=== PATIENT | female | born 1945 | race Caucasian/White ===

== ENCOUNTER → 2016-09-21 10:28 | Outpatient (CLI) | payer MEDICARE, BC ==
[2016-03-14 06:26] VITALS: BMI 38.7
[~2016-09-21 10:28] MED LIST: ASPIRIN EC81 M1 PO; ATIVAN1 MG PO; BREO ELLIPTA 21 EACH; CELEXA40 MG PO; FLUTICASONE PRO16 GM NASAL; HYDROCODONE-APA1 TAB PO; LOTREL 10/20 CA1 CAP PO; MIRALAX17 GM PO; MULTIPLE VITAMI1 TA1 PO; OXYCODONE HCL5 MG PO; PROAIR HFA8.5 GM INH; PROTONIX40 MG PO; SINGULAIR10 MG PO; STOOL SOFTENER100 M1 PO; ZOCOR20 MG PO; ZOFRAN4 MG PO; [UNRECOGNIZED DRUG - OTHER] INJ
== END | disposition home or self-care (01) ==
LOC: D.MRI 10:28
DX: M51.06 Intervertebral disc disorders with myelopathy, lumbar region (principal); M54.6 Pain in thoracic spine; M54.2 Cervicalgia

== ENCOUNTER → 2016-09-25 10:27 | Outpatient (CLI) | payer MEDICARE, BC ==
[2016-03-14 06:26] VITALS: BMI 38.7
== END | disposition home or self-care (01) ==
LOC: D.MRI 10:27
DX: M51.06 Intervertebral disc disorders with myelopathy, lumbar region (principal); M54.2 Cervicalgia; M54.6 Pain in thoracic spine

== ENCOUNTER → 2017-02-12 08:25 | Outpatient (CLI) | payer MEDICARE, BC ==
[2016-03-14 06:26] VITALS: BMI 38.7
[~2017-02-12 08:25] MED LIST changes: +BREO ELLIPTA 11 EACH INH; +BUTALB-APAP-CA1 EACH PO; +HYSINGLA ER30 MG PO; +PROVENTIL HFA6.7 GM INH
--- NOTE | 2017-02-20 10:07 | EC ---
PATIENT:HERMAN AGUILAR DATE OF SERVICE: 02/12/17 SEX: F MEDICAL RECORD: [id number] DATE OF : 47 LOCATION:D.[facility] AGE OF PATIENT: 71 ADMISSION DATE: 02/12/17 REFERRING PHYSICIAN: INTERPRETING PHYSICIAN: BJORN AWAN MD ECHOCARDIOGRAM REPORT ECHO CHARGES 4 ECHO COMPLETE CLINICAL DIAGNOSIS: SOB,CHEST PAIN, PALPITATIONS ECHOCARDIOGRAPHIC MEASUREMENTS (adult normal given) AC root (d.<3.7cm) 3.7 cm LV Septum d (<1.2 cm> 1.2 cm Valve Excursion 1.8 cm LV Septum (systole) 1.4 cm Left Atria (s.<4.0cm> 44.0 cm LVPW d(<1.2cm) 1.4 cm RV (d.<2.3cm) 3.5 cm LVPW (sytole) 1.6 cm LV diastole(<5.6CM) 4.5 cm MV E-F(>70mm/sec) cm LV systole 3.0 cm LVOT Diameter 2.1 cm MV exc.(>10mm) cm Est.ejection fraction (50-75%) % Pericardial Effusion N DOPPLER: LVIT cm/sec A 115 cm/sec E 82.0 cm/sec LA cm/sec RVSP 20 mmHg LVOT 90 cm/sec AOP1/2T m/s Asc. Ao 142 cm/sec RVOT 81 cm/sec RA cm/sec PA 141 cm/sec AV Gradient Peak 8.09 mmHg AV Mean 4.35 mmHg AV Area 2.1 cm MV Gradient Peak 5.60 mmHg MV Mean 2.13 mmHg MV Area cm COMMENTS: Exam Proctor: Kala CHICAS [employer] Systems Programmer: 4 Dr. Awan TAPE# PACS DATE OF SERVICE: 02/12/2017 PROCEDURE: Transthoracic echocardiogram. FINDINGS: 1. There is mild concentric left ventricular hypertrophy. The inflow characteristics consistent with diastolic dysfunction. The ejection fraction is 65%. 2. The left atrium is mildly dilated. 3. Mitral valve is grossly normal. ECHOCARDIOGRAM REPORT [id number] HERMAN AGUILAR 4. The tricuspid valve has trace tricuspid regurgitation. Normal right ventricular systolic pressures. 5. Aortic valve appears to be grossly normal. 6. Pulmonic valve is normal. 7. The right ventricle is mildly dilated. 8. The right atrium is normal size, normal function. CONCLUSION: There is evidence of mild hypertensive heart disease, otherwise normal echocardiogram. TRANSINT:[id number] Voice Confirmation ID: [id number] DOCUMENT ID: [id number] BJORN AWAN MD at 1007 CC: [id number] DICTATION DATE: 02/15/17 0833 AMBULATORY ANALYST: 02/15/17 0902 DEP CLI 02/12/17 [id number] [place] [address]
== END | disposition home or self-care (01) ==
LOC: D.ECHO 08:25
DX: R06.02 Shortness of breath (principal); R07.9 Chest pain, unspecified; R00.2 Palpitations; I10 Essential (primary) hypertension

== ENCOUNTER 2017-04-16 06:55 | Outpatient (CLI) | payer MEDICARE, BC ==
[~2017-04-16] VITALS: Ht 162.6 cm; Wt 104.5 kg
--- NOTE | ~2017-04-16 | HEMODYNAMI ---
PATIENT:HERMAN AGUILAR MEDICAL RECORD: [id number] : 47 LOCATION:[facility] ADMISSION DATE: 04/16/17 Generatedon:04/16/20179:17 Patient name: HERMAN AGUILAR Patient #: [id number] SSN : : 1945 Date of study: 04/16/2017 Page: Of Hemodynamic Procedure Report Patient Data Patient Demographics Procedure consent was obtained First Name: HERMAN Gender: Female Last Name: LAUREN : 1945 Middle Initial: R Age: 71 year(s) Patient #: [id number] Race: Unknown Additional ID: [id number] Contact details [address]: [address] [place] [address] State: [place] City: [place] Zip code: [address] Admission Admission Data Admission Date: 04/16/2017 Admission Time: 6:55 Procedure Procedure Types Cath Procedure Diagnostic Procedure LHC LHC w/Coronaries Miscellaneous Procedures Moderate Sedation up to 15 minutes Procedure Description Procedure Date Procedure Date: 04/16/2017 Procedure Start Time: 9:02 Procedure End Time: 9:16 Procedure Staff Name Function Moncho Abbasi MD Performing Physician Divya Davila RT Monitor Zoe Celestin RT Scrub Sincere Li RN Nurse Procedure Data Cath Procedure Fluoroscopy Diagnostic fluoroscopy Total fluoroscopy Time: 2 time: 2 min min Diagnostic fluoroscopy Total fluoroscopy dose: 503 dose: 503 mGy mGy Contrast Material Contrast Material Type Amount (ml) Isovue 300 37 Entry Location Entry Primary Successful Side Size Upsize Upsize Entry Closure Corona ccessful Closure Location (Fr) 1 (Fr) 2 (Fr) Remarks Device Remarks Radial Right 6 Fr Mechanical artery Short Compression Estimated blood loss: 10 ml Procedure Complications No complications Procedure Medications Medication Administration Route Dosage Oxygen NC 2 l/min Lidocaine 2% added to field 20 Heparin Flush Bag added to field 2 bags (1000units/500ml NS) 0.9% NaCl I.V. 100 ml/hr Zofran I.V. 4 mg Versed I.V. 2 mg Versed I.V. 1 mg Fentanyl I.V. 50 mcg Radial Cocktail I.A. 1 syringe (Verapomil 2mg/Nitro 400mcg/Heparin 1500units) Hemodynamics Rest Heart Rate: 79 (bpm) Pressure Samples Time Site Value (mmHg) Purpose Heart Use Rate(bpm) 9:10 LV 163/-12,8 EDP 79 9:10 AO 113/56(90) Pullback 91 9:10 LV 123/7,10 Pullback 91 Gradients Valve Time Site 1 Site 2 Mean SEP/DFP Peak To Heart Use (mmHg) (sec/min) Peak Rate (mmHg) (bpm) Aortic 9:10 LV AO 7 19 10 91 123/7,10 113/56(90) Calculations Valve P-P Mean Valve Index Valve Source Name Gradient Area Flow (cm2) Aortic 10 7 10 7 Snapshots Pre Cath Intra NCS Post Cath Vital Signs Time Heart Resp SPO2 NIBP (mmHg) Rhythm Pain Sedation Rate (ipm) (%) Status Level (bpm) 8:51:30 84 25 94 134/90(120) NSR 0 (11) 10(A) , No pain 8:55:46 87 16 98 152/92(134) NSR 0 (11) 10(A) , No pain 9:00:00 81 18 99 139/83(110) NSR 0 (11) 10(A) , No pain 9:04:20 79 15 99 141/79(111) NSR 0 (11) 10(A) , No pain 9:08:44 80 18 98 146/79(108) NSR 0 (11) 10(A) , No pain 9:13:02 84 18 98 131/73(98) NSR 0 (11) 10(A) , No pain Medications Time Medication Route Dose Verified Delivered Reason Notes Effectiveness by by 8:52:32 Oxygen NC 2 l/min Moncho Buffie used for Ayleen fowler MD 8:52:41 Lidocaine 2% added 20ml Moncho Moncho for local to vial Ayleen Abbasi MD anesthetic field FROST 8:52:46 Heparin Flush added 2 bags Moncho Moncho used for Bag to Ayleen Abbasi MD procedure (1000units/500ml field FROST NS) 8:52:55 0.9% NaCl I.V. 100 Moncho Buffie Per ml/hr Ayleen Li RN physician 8:53:06 Zofran I.V. 4 mg Moncho Buffie Per pt state s Ayleen Li RN physician n/v with anesthesia 8:55:32 Versed I.V. 2 mg Moncho Buffie for anxiety Ayleen Li RN, MD 8:58:39 Versed I.V. 1 mg Moncho Buffie for sedation Ayleen Li RN, MD 8:58:44 Fentanyl I.V. 50 mcg Moncho Buffie for sedation Ayleen Li RN, MD 9:09:08 Radial Cocktail I.A. 1 Moncho Moncho for (Verapomil syringe Ayleen Abbasi MD vasodilation 2mg/Nitro MD 400mcg/Heparin 1500units) Procedure Log Time Note 8:36:48 Diagnostic Cath Status : Elective 8:37:19 Divya Davila RT(R) sent for patient. Start room use. 8:37:20 Time tracking: Regular hours 8:37:24 Plan of Care:Hemodynamics will remain stable., Cardiac rhythm will remain stable., Comfort level will be maintained., Respiratory function will remain adequate., Patient/ family verbilizes understanding of procedure., Procedure tolerated without complication., Recovers from procedure without complications.. 8:41:43 Patient received from Pre/Post Procedure Room to CCL 2 Alert and oriented. Tansferred to table in Supine position. 8:41:45 Warm blankets applied, and matt hugger turned on for patient comfort. 8:41:45 Correct patient and procedure confirmed by team. 8:41:47 Signed procedure consent form obtained from patient. 8:41:48 ECG and BP/O2 sat monitors applied to patient. 8:44:42 Full Disclosure recording started 8:44:55 H&P Date Dictated: 04/10/2017 Within 30 days and on chart., H&P Addendum completed by physician on day of procedure. (MUST COMPLETE FOR ALL OUTPATIENTS). 8:45:03 Pre-procedure instructions explained to patient. 8:45:04 Pre-op teaching completed and patient verbalized understanding. 8:45:05 Family in patients room. 8:45:06 Patient NPO since Midnight. 8:45:10 Is the patient allergic to Iodine/contrast media? No. 8:45:58 Is patient on blood thinner?Yes 8:46:14 Patient diabetic? No. 8:46:18 Previous problem with sedation/anesthesia? Yes Nausea 8:46:19 Snore? Yes 8:46:20 Sleep apnea? No 8:46:21 Deviated septum? No 8:46:22 Opens mouth fully? Yes 8:46:23 Sticks out tongue? Yes 8:46:25 Airway obstruction? Yes Asthma/Bronchitis 8:46:29 Dentures? No ? 8:46:32 Pre procedure: right dorsailis pedis pulse 2+ Normal; easily identifiable; not easily obliterated 8:47:09 Modified Wellington's test Ulnar < 7 seconds 8:47:12 Patient pain scale 0/10 ?. 8:47:19 IV patent on arrival in left forearm with 0.9% NaCl at [facility]. 8:47:24 Lab results completed and on chart. 8:47:26 Right Radial & Right Groin area was prepped with chlora-prep and draped in sterile fashion 8:47:27 Alarms reviewed by R. N. 8:47:27 Sharps counted by scrub and verified by R.N. 8:47:52 Use device set Radial Dx 8:47:52 ACIST Syringe (50348) opened to sterile field. 8:47:53 Medline Cath Pack ([id number]) opened to sterile field. 8:47:53 Bag Decanter (2002S) opened to sterile field. 8:47:54 SHEATH 6FR Slender ([id number]) opened to sterile field. 8:47:55 DIAGNOSTIC WIRE .035 260cm J wire (041797) opened to sterile field. 8:47:55 ACIST Hand Control (79057) opened to sterile field. 8:47:56 ACIST Manifold (75836) opened to sterile field. 8:47:57 Tegaderm 4 x 4 (1626W) opened to sterile field. 8:49:01 Rhythm: sinus rhythm 8:50:18 Vital chart was started 8:50:49 ACC The patient was administered the following blood thiners within the last 24 hours: ACCAspirin, ACCPlavix 8:52:32 Oxygen 2 l/min NC was administered by Sincere Li RN; used for procedure; 8:52:41 Lidocaine 2% 20ml vial added to field was administered by Moncho Abbasi MD; for local anesthetic; 8:52:46 Heparin Flush Bag (1000units/500ml NS) 2 bags added to field was administered by Moncho Abbasi MD; used for procedure; 8::55 0.9% NaCl 100 ml/hr I.V. was administered by Sincere Li RN; Per physician; 8:53:06 Zofran 4 mg I.V. was administered by Sincere Li RN; Per physician; pt states n/v with anesthesia 8:55:27 Physician arrived 8::27 --------ALL STOP TIME OUT------ 8:55:28 Final Timeout: patient, procedure, and site verified with staff and physician. All members of the team are in agreement. 8:55:30 Right Radial & Right Groin site verified by team. 8:55:32 Versed 2 mg I.V. was administered by Sincere Li RN; for anxiety; 8:55:37 Physical assessment completed. ASA score P 2 - A patient with mild systemic disease as per Moncho Abbasi MD. 8:55:42 Sedation plan: IV Moderate Sedation Medication:Versed, Fentanyl 8:58:39 Versed 1 mg I.V. was administered by Sincere Li RN; for sedation; 8:58:44 Fentanyl 50 mcg I.V. was administered by Sincere Li RN; for sedation; 9:02:04 Procedure started. 9:02:12 Zero performed for pressure channel P1 9::27 Local anesthetic to right radial artery with Lidocaine 2% by Moncho Abbasi MD.INITIAL ACCESS ONLY 9:03:15 A 6 Fr Short sheath was inserted into the Right Radial artery 9:08:36 GUIDE 6Fr Garrison 4.0 catheter (518416) opened to sterile field. 9:09:08 Radial Cocktail (Verapomil 2mg/Nitro 400mcg/Heparin 1500units) 1 syringe I.A. was administered by Moncho Abbasi MD; for vasodilation; 9:09:18 LV angiography performed. 9:09:41 LV gram done using CRAIG 9:10:55 LCA angiography performed. 9:11:43 RCA angiography performed. 9:12:58 Catheter removed. 9:13:16 TR BAND Standard ([id number]) opened to sterile field. 9:14:36 Sheath removed intact; hemostasis achieved with Mechanical Compression to the Right Radial artery. 9:14:39 Procedure ended.(Physican Out) 9:14:48 Fluoroscopy time 02.00 minutes. 9:14:53 Fluoroscopy dose: 503 mGy 9:14:53 Flurop Dose total: 503 9:14:57 Contrast amount:Isovue 300 37ml. 9:14:59 Sharps counted by scrub and verified by R.N. 9:15:01 TR band inflated with 12cc of air. 9:15:03 Insertion/operative site no bleeding no hematoma. 9:15:05 Post Procedure Pulses reassessed and unchanged 9:15:08 Post-procedure physical assessment completed. ASA score P 2 - A patient with mild systemic disease as per Moncho Abbasi MD. 9:15:15 Post procedure rhythm: unchanged. 9:15:17 Estimated blood loss: 10 ml 9:15:19 Post procedure instruction explained to patient.Patient verbalizes understanding. 9:15:31 Procedure type changed to Cath procedure, Diagnostic procedure, LHC, LHC w/Coronaries, Miscellaneous Procedures, Moderate Sedation up to 15 minutes 9:15:33 Procedure and supply charges have been captured, reviewed, submitted and are correct. 9:16:07 Procedure Complication : No complications 9:16:09 Vital chart was stopped 9:16:10 See physician's report for complete and final results. 9:16:11 Report given to Pre/Post Procedure Room. 9:16:14 Patient transfered to Pre/Post Procedure Room with Stretcher. 9:16:17 Procedure ended. 9:16:17 Full Disclosure recording stopped 9:16:33 End room use (Document Last) Device Usage Item Name Manufacture Quantity Catalog Hospital Part Current Minimal Lot# / Number Charge Number Stock Stock Serial# Code ACIST Acist 1 92412 552471 330658 913816 20 Syringe Sigmatix (35710) Systems Inc Medline Cath Cardinal 1 [id number] 171486 44892 269099 5 Pack Ayalogic ([id number]) Bag Decanter Microtek 1 075985 34796 964847 5 () Medical Inc. SHEATH 6FR Terumo 1 [id number] 978869 981370 920779 40 Slender ([id number]) DIAGNOSTIC St Bear 1 748921 701652 888725 455744 30 WIRE .035 260cm J wire (005320) ACIST Hand Acist 1 23806 144198 049599 179082 5 Control Medical (26132) Systems Inc ACIST Acist 1 70350 430905 653140 267156 5 Manifold Medical (51575) Systems Inc Tegaderm 4 x 3M 1 1626W 322115 372153 889096 5 4 (1626W) GUIDE 6Fr Terumo 1 73-8242 519754 436043 947094 1 Garrison 4.0 catheter (486798) TR BAND Terumo 1 [id number] 067045 277581 353233 40 Standard ([id number]) Signature Audit [place] Stage Time Signature Unsigned Intra-Procedure 04/16/2017 Divya Davila 9:17:16 AM RT(R) Signatures Monitor : Divya Davila Signature : RT Date : Time : [address] [address]
[~2017-04-16 06:55] MED LIST changes: -BREO ELLIPTA 11 EACH INH; -BUTALB-APAP-CA1 EACH PO; -HYSINGLA ER30 MG PO; -PROVENTIL HFA6.7 GM INH
[2017-04-16 07:38] LABS: BASOPHILS 0.3 % (0-2); HEMATOCRIT 40.5 % (36.0-48.0); HEMOGLOBIN 13.7 g/dL (12-16); IMMATURE GRANULOCYTES 0.3 % (0-5); LYMPHOCYTES 28.9 % (15-50); MCH 30.9 pg (26.0-34.0); MCHC 33.8 g/dL (31.0-37.0); MCV 91.2 fL (80.0-100.0); MEAN PLATELET VOLUME 9.1 fL (7.4-10.4); MONOCYTES 10.5 % (2-11); PLATELET COUNT 233 10x3/uL (130-400); RBC 4.44 10x6/uL (4.00-5.40); RDW 13.3 % (11.5-14.5)
[2017-04-16] MEDS ORDERED: HYSINGLA ER30 MG PO (07:42)
[2017-04-16] MEDS ORDERED: BUTALB-APAP-CA1 EACH PO (07:43)
[2017-04-16] MEDS ORDERED: PROVENTIL HFA6.7 GM INH (07:44)
[2017-04-16] MEDS ORDERED: BREO ELLIPTA 11 EACH INH (07:45)
[2017-04-16 07:47] LABS: ANION GAP 12.8 mmol/L (8-16); CALCIUM 9.9 mg/dL (8.5-10.1); CARBON DIOXIDE 27.1 mmol/L (21.0-32.0); POTASSIUM - SERUM 3.9 mmol/L (3.5-5.1)
[2017-04-16 07:50] VITALS: BP 160/85; Ht 162.6 cm; Wt 104.5 kg
--- NOTE | 2017-04-16 09:45 | NUR ---
ALERT AND ORIENTED X4. SITTING UP IN BED. ASSIST ROLLING ON SIDE. TR BAND RT WRIST CLEAN DRY INTACT. FREE FROM BLEEDING. FREE FROM HEMATOMA. PULSES PALPABLE BILATERALLY. WARM BLANKET PER PATIENT REQUEST. O2 95% RA. DENIES SOB OR CHEST PAIN. DISCUSS THE IMPORTANCE OF NOT USING RT HAND FOR 2 HOURS. DENIES ANY NEEDS. BP-94/53, SINUS 74bpm ON TELEMETRY. CONTINUE PLAN OF CARE. BED LOCKED AND LOW. CALL LIGHT IN REACH. TWO SIDERAILS UP.
--- NOTE | 2017-04-16 10:21 | NUR ---
ALERT AND ORIENTED X4. ASSIST AMBULATING TO RESTROOM. RT BAND RT WRIST CLEAN DRY INTACT. FREE FROM BLEEDING. GAIT STEADY. O2 @ 97% RA. ASSIST BACK TO BED. SINUS 74bpm ON TELEMETRY. DENIES SOB. PULSES PALPABLE BILATERALLY. DENIES ANY NEEDS. CONTINUE PLAN OF CARE AND SAFETY PRECAUTIONS.
--- NOTE | 2017-04-16 11:10 | NUR ---
ALERT AND ORIENTED X4. SITTING UP IN BED. ASSIST REPOSITIONING IN BED. DEFLATE BULB ON TR BAND 4mL. RT WRIST BEGAN BLEEDING. INFLATE BULB BACK WITH 2mL BLEEDING STOPPED. EATING SANDWICH. DENIES NAUSEA. PULSES PALPABLE BILATERALLY. SINUS RHYTHM 82bpm ON TELEMETRY. DENIES SOB. CONTINUE PLAN OF CARE AND SAFETY PRECAUTIONS.
--- NOTE | 2017-04-16 11:59 | NUR ---
ASSIST TO RESTROOM. GAIT STEADY. DENIES SOB OR CHEST PAIN. DEFLATE TR BAND 2mL. TOTAL DEFLATION 4mL. CONTINUE TO MONITOR FOR BLEEDING. CONTINUE PLAN OF CARE AND SAFETY PRECAUTIONS. PULSES PALPABLE BILATERALLY.
--- NOTE | 2017-04-16 12:21 | NUR ---
ALERT AND ORIENTED X4. RESTING IN BED WATCHING TV. DEFLATE TR BAND 2 MORE MLS. CONTINUE TO MONITOR FOR BLEEDING. NO MEDICAL CHANGE. CONTINUE PLAN OF CARE AND SAFETY PRECAUTIONS.
--- NOTE | 2017-04-16 12:50 | NUR ---
ALERT AND ORIENTED X4. SITTING UP IN BED. NOTIFY JOLEEN PROBLEM GETTING TR BAND OFF. TR BAND REMOVED. BLEEDING COMING FROM CUT NOT ARTERIAL. BANDAIDE PLACED OVER SITE. TR BAND RETURNED TO RT WRIST WITH 4cc AIR. INSTRUCT PATIENT TO LEAVE ON UNTIL 1600. SAFE TO GO HOME PER JOLEEN. CALL ETHEL (GRANDDAUGHTER) [phone] TO NOTIFY OF DISCHARGE FOR TRANSPORTATION. PULSES PALPABLE BILATERALLY. DENIES SOB. DC LT HAND IV TIP INTACT. CONTINUE PLAN OF CARE AND SAFETY PRECAUTIONS.
== END 2017-04-16 13:14 | disposition home or self-care (01) ==
LOC: D.CATH 06:55
PROVIDERS: Internal Medicine Cardiovascular Disease
DX: I50.30 Unspecified diastolic (congestive) heart failure (principal); R07.2 Precordial pain; R06.02 Shortness of breath; I10 Essential (primary) hypertension; Z01.812 Encounter for preprocedural laboratory examination

== ENCOUNTER → 2018-06-16 10:53 | Outpatient (CLI) | payer MEDICARE, BC ==
[2017-04-16 07:50] VITALS: BMI 39.5
[~2018-06-16 10:53] MED LIST changes: +BREO ELLIPTA 11 EACH INH; +BUTALB-APAP-CA1 EACH PO; +HYSINGLA ER30 MG PO; +PROVENTIL HFA6.7 GM INH
== END | disposition home or self-care (01) ==
LOC: D.CT 10:53
DX: J18.9 Pneumonia, unspecified organism (principal)

== ENCOUNTER 2018-12-02 17:56 | Inpatient (IN) | payer MEDICARE, BC ==
[~2018-12-02] VITALS: Ht 162.6 cm; Wt 116.8 kg
[~2018-12-02 17:56] MED LIST changes: +LOTENSIN20 MG PO; -LOTREL 10/20 CA1 CAP PO
--- NOTE | 2018-12-02 18:44 | NUR ---
FAMILY SETTLED IN ROOM, FAMILY AT BEDSIDE. CORIE PT. PASSED TO CASCADE OPERATOR.
[2018-12-02 18:57] LABS: BASOPHILS 0.3 % (0-2); HEMATOCRIT 37.4 % (36.0-48.0); HEMOGLOBIN 12.9 g/dL (12-16); IMMATURE GRANULOCYTES 1.6 % (0-5); MCH 30.9 pg (26.0-34.0); MCHC 34.5 g/dL (31.0-37.0); MCV 89.5 fL (80.0-100.0); MEAN PLATELET VOLUME 9.2 fL (7.4-10.4); MONOCYTES 11.1 % (2-11); PLATELET COUNT 274 10x3/uL (130-400); RBC 4.18 10x6/uL (4.00-5.40); WBC 12.7 10x3/uL (4.8-10.8)
[2018-12-02 19:14] LABS: ALBUMIN 3.9 g/dL (3.4-5.0); ANION GAP 14.6 mmol/L (8-16); BILIRUBIN - TOTAL 0.33 mg/dL (0.2-1.3); C-REACTIVE PROTEIN 0.6 mg/dL (0.0-0.9); CALCIUM 8.8 mg/dL (8.5-10.1); CARBON DIOXIDE 23.3 mmol/L (21.0-32.0); CREATININE - SERUM 1.1 mg/dL (0.6-1.3); MAGNESIUM - SERUM 2.1 mg/dL (1.8-2.4); PHOSPHOROUS 3.8 mg/dL (2.5-4.9); POTASSIUM - SERUM 3.9 mmol/L (3.5-5.1); PROTEIN - SERUM 7.4 g/dL (6.4-8.2)
--- NOTE | 2018-12-02 19:15 | NUR ---
EMMIE JACINTO IN ROOM SPEAKING WITH PATIENT AND FAMILY. NURSE WROTE NAME AND DATE ON BOARD AND WILL COME BACK TO COMPLETE ADMIT. NO S/S OF DISTRESS. PT UP IN CHAIR. WILL CPOC
[2018-12-02 20:00] VITALS: BP 126/51
[2018-12-02] MEDS ORDERED: SYMBICORT 16010.2 GM INH (20:44)
[2018-12-02] MEDS ORDERED: TRIAMTERENE-HC1 EAC3 PO (20:48)
[2018-12-02] MEDS ORDERED: MIRAPEX0.25 MG PO (21:08)
--- NOTE | 2018-12-02 21:27 | NUR ---
ADMIT COMPLETE. MED REC AND PHARMACY UPDATED. IV PLACED IN LEFT HAND ONE ATTEMPT 20G MEDS GIVEN AND PT VERBALIZED UNDERSTANDING OF ALL MEDICATIONS. PT DENIES ANY NEEDS. NO S/S OF DISTRESS. WILL CPOC
--- NOTE | 2018-12-02 22:07 | NUR ---
PT ASSISTED TO RESTROOM WITH STAND BY ASSIST. GAIT STEADY. PT LEFT HAND IV NOT PATENT. NEW IV PLACED RIGHT WRIST. 20G ONE ATTEMPT AND MEDICATIONS GIVEN. PT DENIES ANY NEEDS. ASKING ABOUT ATIVAN. WILL CHECK ORDERS. NO S/S OF DISTRESS. WILL CPOC
[2018-12-03] VITALS (7 sets, daily range): BP systolic 114–141; BP diastolic 48–77; Ht 162.6 cm; Wt 116.8 kg
[2018-12-03 00:43] LABS: AMORPHOUS SEDIMENT <1+ /lpf (NONE SEEN); APPEARANCE CLEAR (CLEAR); BACTERIA MODERATE /hpf (NONE SEEN); BILIRUBIN NEGATIVE (NEGATIVE); COLOR YELLOW (YELLOW); EPITHELIAL CELLS 0-5 /hpf (0-5); GLUCOSE NEGATIVE (NEGATIVE); GRANULAR CAST NONE SEEN /lpf (NONE SEEN); HYALINE CAST NONE SEEN /lpf (NONE SEEN); KETONE NEGATIVE (NEGATIVE); MUCUS NONE SEEN /lpf (NONE SEEN); NITRITE NEGATIVE (NEGATIVE); PROTEIN 1+ mg/dL (NEGATIVE); RED CELL CAST NONE SEEN /lpf (NONE SEEN); RED CELLS - URINE 0-5 /hpf (0-5); SPERMATOZOA NONE SEEN /hpf (NONE SEEN); UROBILINOGEN NORMAL (NORMAL); WAXY CAST NONE SEEN /lpf (NONE SEEN); WHITE CELLS - URINE 0-5 /hpf (0-5); YEAST NONE SEEN /hpf (NONE SEEN)
--- NOTE | 2018-12-03 01:03 | NUR ---
PT LAYING IN CHAIR WITH EYES CLOSED. PT UNABLE TO STAY IN BED DUE TO DYSPNEA AND BACK PAIN. NO OTHER NEEDS. WILL CPOC
--- NOTE | 2018-12-03 01:06 | NUR ---
PT UP TO RESTROOM. NO DIFFICULTY. GAIT STEADY. PT WILL CALL FOR ASSIST WHEN NEEDED. WILL CPOC
--- NOTE | 2018-12-03 04:18 | NUR ---
PT COMPLAINS OF PAIN. NORCO GIVEN ORDERED. WILL CPOC
[2018-12-03] MEDS ORDERED: IBUPROFEN800 MG PO (04:20)
--- NOTE | 2018-12-03 04:20 | NUR ---
PT SITTING UP IN CHAIR. COUGH NOT PRODUCTIVE AT THIS TIME. AAO. AWARE THAT SPUTUM CULTURE IS NEEDED. WILL CPOC
[2018-12-03 05:53] LABS: ALBUMIN 3.2 g/dL (3.4-5.0); ANION GAP 14.4 mmol/L (8-16); BILIRUBIN - TOTAL 0.35 mg/dL (0.2-1.3); CALCIUM 8.7 mg/dL (8.5-10.1); CARBON DIOXIDE 24.3 mmol/L (21.0-32.0); CREATININE - SERUM 1.2 mg/dL (0.6-1.3); PHOSPHOROUS 3.8 mg/dL (2.5-4.9); PROTEIN - SERUM 6.9 g/dL (6.4-8.2)
[2018-12-03 06:21] LABS: POTASSIUM - SERUM 4.7 mmol/L (3.5-5.1)
--- NOTE | 2018-12-03 07:00 | NUR ---
REPORT RECEIVED. SHE IS UP IN CHAIR IN ROOM. ALERT. RIGHT WRIST IV SITE CLEAR. RESP EVEN WITHOUT LABOR. O2 SAT ON R/A IS 95%, O2 IS OFF AT THIS TIME. SHE IS COUGHING NON-PRODUCTIVE. BED IN LOWEST POSITION AND LOCKED. CAREPLAN REVIEW DONE WITH SAFETY PRECAUTIONS IN PLACE. SHE REFUSES TO WEAR SCD'S BUT IS ON LOVENOX. CL IN REACH
[2018-12-03 07:35] LABS: BASOPHILS 0.2 % (0-2); EOSINOPHILS 0.1 % (0-7); IMMATURE GRANULOCYTES 1.9 % (0-5); LYMPHOCYTES 13.3 % (15-50); MCH 30.4 pg (26.0-34.0); MCHC 34.2 g/dL (31.0-37.0); MCV 88.8 fL (80.0-100.0); MEAN PLATELET VOLUME 9.5 fL (7.4-10.4); MONOCYTES 1.9 % (2-11); NEUTROPHILS 82.6 % (40-80); PLATELET COUNT 290 10x3/uL (130-400); RBC 4.28 10x6/uL (4.00-5.40); RDW 13.9 % (11.5-14.5); WBC 10.8 10x3/uL (4.8-10.8)
--- NOTE | 2018-12-03 10:45 | NUR ---
SHE IS SITTING UP IN CHAIR IN ROOM WITH NO C/O AT THIS TIME. SHE DOES HAVE DRY COUGH BUT ONLY HAD CLEAR SPIT IN SPECIMEN CUP. SHE WAS ASKED TO TRY AGAIN AND NEW CUP WAS PROVIDED
--- NOTE | 2018-12-03 17:30 | NUR ---
NO CHANGE IN CONDITION NOTED CL IN REACH. RESP EVEN WITHOUT LABOR
--- NOTE | 2018-12-03 19:29 | NUR ---
SPUTUM COLLECTED AT THIS TIME AND TAKEN TO LAB
--- NOTE | 2018-12-03 19:36 | NUR ---
PT IN CHAIR AT BEDSIDE. DENIES NEEDS AT THIS TIME.
[2018-12-04] VITALS: BP 121/60
[2018-12-04 04:00] VITALS: BP 114/56
[2018-12-04 06:03] LABS: BASOPHILS 0.1 % (0-2); EOSINOPHILS 0 % (0-7); HEMATOCRIT 35.4 % (36.0-48.0); IMMATURE GRANULOCYTES 1.5 % (0-5); LYMPHOCYTES 9.6 % (15-50); MCH 30.4 pg (26.0-34.0); MCHC 33.9 g/dL (31.0-37.0); MCV 89.6 fL (80.0-100.0); MEAN PLATELET VOLUME 9.2 fL (7.4-10.4); MONOCYTES 4.6 % (2-11); NEUTROPHILS 84.2 % (40-80); PLATELET COUNT 268 10x3/uL (130-400); RBC 3.95 10x6/uL (4.00-5.40); RDW 13.9 % (11.5-14.5)
[2018-12-04 06:06] LABS: WBC 15.5 10x3/uL (4.8-10.8)
[2018-12-04 06:13] LABS: ANION GAP 11.4 mmol/L (8-16); CALCIUM 8.8 mg/dL (8.5-10.1); CARBON DIOXIDE 26.8 mmol/L (21.0-32.0); CREATININE - SERUM 1.1 mg/dL (0.6-1.3); MAGNESIUM - SERUM 2.1 mg/dL (1.8-2.4); PHOSPHOROUS 3.9 mg/dL (2.5-4.9); POTASSIUM - SERUM 4.2 mmol/L (3.5-5.1)
--- NOTE | 2018-12-04 06:55 | NUR ---
REPORT RECEIVED. ALERT ABLE TO VOICE NEEDS. SHE IS SITTING UP IN HER CHAIR IN ROOM. CL IN REACH. BED IN LOWEST POSITION AND LOCKED. CAREPLAN REVIEW DONE WITH SAFETY PRECAUTIONS IN PLACE. SALINE LOCK INTACT.
[2018-12-04 09:17] VITALS: BP 147/60
--- NOTE | 2018-12-04 10:28 | NUR ---
RETURN AT THIS TIME FROM HAVING [facility] SWALLOW STUDY. SHE IS AWARE TO INCREASE HER FLUID INTAKE. SHE OFFERS NO C/O.
[2018-12-04 12:22] VITALS: BP 117/55
--- NOTE | 2018-12-04 13:11 | EC ---
PATIENT:HERMAN AGUILAR DATE OF SERVICE: 12/02/18 SEX: F MEDICAL RECORD: [id number] DATE OF : 47 LOCATION:D.M2 D.210 AGE OF PATIENT: 73 ADMISSION DATE: 12/03/18 REFERRING PHYSICIAN: INTERPRETING PHYSICIAN: BARTOLO SKINNER MD ECHOCARDIOGRAM REPORT ECHO CHARGES 4 ECHO COMPLETE Date: 12/03/18 CLINICAL DIAGNOSIS: HX: CAD, HTN, SOB ECHOCARDIOGRAPHIC MEASUREMENTS (adult normal given) AC root (d.<3.7cm) 3.3 cm LV Septum d (<1.2 cm> 1.6 cm Valve Excursion 1.3 cm LV Septum (systole) 1.7 cm Left Atria (s.<4.0cm> 3.5 cm LVPW d(<1.2cm) 1.0 cm RV (d.<2.3cm) 3.3 cm LVPW (sytole) 1.4 cm LV diastole(<5.6CM) 4.4 cm MV E-F(>70mm/sec) cm LV systole 3.5 cm LVOT Diameter 2.2 cm MV exc.(>10mm) cm Est.ejection fraction (50-75%) % DOPPLER: LVIT cm/sec A 54 cm/sec E 51 cm/sec LA cm/sec RVSP 32.8 mmHg LVOT 81 cm/sec AOP1/2T m/s Asc. Ao 156 cm/sec RVOT 106 cm/sec RA cm/sec PA 76 cm/sec AV Gradient Peak 9.7 mmHg AV Mean 6.0 mmHg AV Area 2.2 cm MV Gradient Peak 2.5 mmHg MV Mean 1.3 mmHg MV Area cm COMMENTS: Manager Underwriting: Jude RAE Glue Line Operator: 3 Dr. Soto TAPE# PACS Pericardial Effusion N DATE OF SERVICE: 12/03/2018 Adequate 2D, color flow imaging, spectral Doppler, and M-mode. LVH is present. LV internal dimension is normal. Wall motion is normal. EF is greater than or equal to 55%. Aortic valve is tricuspid. No evidence of stenosis by Doppler interrogation. The left atrium is normal at 3.5 cm. Mitral valve shows no prolapse. Trace MR. Right-sided chambers are grossly normal. Trace TR. ECHOCARDIOGRAM REPORT [id number] HERMAN AGUILAR TRANSINT:[id number] Voice Confirmation ID: [id number] DOCUMENT ID: [id number] BARTOLO SKINNER MD at 1311 CC: [id number] DICTATION DATE: 12/03/18 143 LOCOMOTIVE FIRER: 12/03/18 1510 ADM IN [place] [address] [place] [address]
--- NOTE | 2018-12-04 17:30 | NUR ---
NO C/O VOICED AT THIS TIME. LESS COUGHING TODAY. ALERT ABLE TO VOICE NEEDS. DENIES ANY
--- NOTE | 2018-12-04 19:50 | NUR ---
REPORT RECIEVED AND ROUNDING COMPLETE. PATIENT SITTING UP IN BEDSIDE CHAIR. PATIENT STATES SHE IS IN PAIN AND WOULD LIKE SOME PAIN MEDICATIONS. DAUGHTER AT BEDSIDE. PATIENT HAS A RIGHT WRIST WITH ABX RUNNING AT THIS TIME. PATIENT STATES NO OTHER NEEDS AT THIS TIME CALL LIGHT WITHIN REACH AND BED IN LOWEST POSITION. PATIENT IS SHOWING NO S/SX OF DISTRESS AT THIS TIME.
[2018-12-04 20:00] VITALS: BP 134/62
--- NOTE | 2018-12-04 23:24 | NUR ---
PATIENT CALLED ME INTO ROOM AND STATED IV WAS BURNING. IV SITE RIGHT WRIST WAS RED AND WARM. REMOVED PIV, CATH INTACT NO BLEEDING NOTED. PLACED A 20 GAUGE IN RIGHT FOREARM, 1 STICK PATIENT TOLERATED WELL. NO OTHER NEEDS AT THIS TIME.
[2018-12-05] VITALS: BP 119/67
[2018-12-05 04:00] VITALS: BP 142/53
[2018-12-05 05:10] LABS: BASOPHILS 0 % (0-2); EOSINOPHILS 0 % (0-7); HEMATOCRIT 33.8 % (36.0-48.0); HEMOGLOBIN 11.6 g/dL (12-16); IMMATURE GRANULOCYTES 2.4 % (0-5); LYMPHOCYTES 9.1 % (15-50); MCH 30.6 pg (26.0-34.0); MCHC 34.3 g/dL (31.0-37.0); MCV 89.2 fL (80.0-100.0); MEAN PLATELET VOLUME 9.1 fL (7.4-10.4); MONOCYTES 6.3 % (2-11); NEUTROPHILS 82.2 % (40-80); PLATELET COUNT 264 10x3/uL (130-400); RBC 3.79 10x6/uL (4.00-5.40); RDW 14.3 % (11.5-14.5); WBC 13.8 10x3/uL (4.8-10.8)
[2018-12-05 05:14] LABS: % SATURATION 16 % (15-55); IRON 50 ug/dl (35-150); TOTAL IRON BIND CAPACITY 297 ug/dl (260-445); UNSAT IRON BIND CAPACITY 247 ug/dl (150-375)
[2018-12-05 06:06] LABS: ANION GAP 16.6 mmol/L (8-16); CALCIUM 8.6 mg/dL (8.5-10.1); CARBON DIOXIDE 24.6 mmol/L (21.0-32.0); CREATININE - SERUM 1.1 mg/dL (0.6-1.3); MAGNESIUM - SERUM 2.1 mg/dL (1.8-2.4); PHOSPHOROUS 3.7 mg/dL (2.5-4.9); POTASSIUM - SERUM 4.2 mmol/L (3.5-5.1)
--- NOTE | 2018-12-05 06:50 | NUR ---
REPORT RECEIVED. SHE IS SITTING UP IN CHAIR IN ROOM. ALERT ABLE TO VOICE NEEDS. RESP EVEN WITHOUT LABOR. NO COUGH NOTED AT THIS TIME. SALINE LOCK INTACT IN RIGHT FOREARM. CL IN REACH. CHAIR IS LOCKED. CAREPLAN REVIEW DONE AND SAFETY PRECAUTIONS IN PLACE
[2018-12-05 08:11] LABS: IMMUNOGLOBULIN A 159 mg/dL (64-422); IMMUNOGLOBULIN G 855 mg/dL (700-1600)
[2018-12-05 09:27] VITALS: BP 139/68
--- NOTE | 2018-12-05 11:25 | NUR ---
C/O BACK PAIN. HYDROCODONE GIVEN PER ORDERS. DENIES ANY OTHER NEEDS.
[2018-12-05 13:45] VITALS: BP 145/61
--- NOTE | 2018-12-05 14:43 | MORECARE ---
CASE MANAGEMENT DISCHARGE SUMMARY PATIENT: HERMAN AGUILAR UNIT: [id number] ADM DATE: 12/03/18 AGE: 73 : 47 SEX: F ROOM/BED: D.8209 AUTHOR: MANAN CRABTREE PHYSICIAN: REFERRING PHYSICIAN: MARKO DA SILVA MD DATE OF SERVICE: 12/05/18 Discharge Plan Patient Name: HERMAN AGUILAR Facility: [facility]:[place] : 1945 Planned Disposition: Home Anticipated Discharge Date: 12/05/18 Discharge Date: Expected LOS: 2 Initial Reviewer: [email or web address] Initial Review Date: 12/02/2018 Generated: 12/05/18 3:43 pm Comments DCP- Discharge Planning Updated by [id number]: Verónica Hilton on 12/05/18 1:[address] Patient Name: HERMAN AGUILAR Admission Status: Elective Accout number: [id number] Admission Date: 12-03-2018 : 1945 Admission Diagnosis:SHORTNESS OF BREATH Attending: AVINASH, Current LOS: 2 Anticipated DC Date: 12-05-2018 Planned Disposition: Home Primary Insurance: MEDICARE A & B Discharge Planning Comments: DC PLAN: Return home next to daughter. DC NEEDS: Denied dc needs. CM met with patient to complete initial dc planning assessment. CM educated patient on the CM role and verbal consent given by patient to complete assessment. CM verified patient's address, phone number, and emergency contact phone numbers. Patient lives at home alone and reports she is independent with her ADL's. She lives next to her daughter who assists as needed. At discharge patient plans to return home alone and feels this is a safe discharge. CM discussed availability of home health, rehab services, and medical equipment. Patient denied known discharge needs at this time. Patient reports her daughter will transport him/her home at time of discharge. CM will continue to follow and will assist as needed with dc plans/needs. Supervisor Spring Up: Verónica Hilton RN, [facility] DCPIA - Discharge Planning Initial Assessment Updated by [id number]: Verónica Hilton on 12/05/18 2:38 pm * Is the patient Alert and Oriented? Yes * How many steps to enter\exit or inside your home? NONE * PCP Dr. Da Silva * Pharmacy [facility] on [address] * Preadmission Environment Home Alone * ADLs Independent * Equipment Nebulizer Walker * List name and contact numbers for known caregivers / representatives who currently or will assist patient after discharge: Mayra Garcia - [facility] - [phone] Latisha Benito - [facility] - [phone] * Verbal permission to speak to the caregivers and representatives has been obtained from the patient. Yes * Community resources currently utilized None * Additional services required to return to the preadmission environment? No * Can the patient safely return to the preadmission environment? Yes * Has this patient been hospitalized within the prior 30 days at any hospital? No Coverage Notice Reviewer: [email or web address] Eliecer Hilton Notice Issued Date-Time: 12/05/2018 13:16 Notice Type: IM Discharge Notice Notice Delivered To: Patient Relationship to Patient: Mechanical Integrity Specialist Name: Delivery Method: HAND - Hand Delivered Ellie Days: Prior Verbal Notification: Recipient Understood Notice: Recipient Signature: Med Rec Note Co-signed by Attending: Coverage Notice Comment: Patient Name: HERMAN AGUILAR Page [id number] at 1443 All edits/amendments must be made on the electronic document DICTATION DATE: 12/05/181442 CLINICAL PROJECT LEADER: ASHLEY 12/05/181442 RPT#: [id number] DC DATE: STATUS: ADM IN [facility] [address] [place] [address] END OF REPORT
[2018-12-05] MEDS ORDERED: LEVAQUIN750 MG PO (15:46)
[2018-12-05] MEDS ORDERED: MUCINEX DM ER1 EAC1 PO (16:48)
[2018-12-05] MEDS ORDERED: TESSALON PERLE100 MG PO (16:48)
[2018-12-05] MEDS ORDERED: PREDNISONE20 MG PO ×2 (16:49→16:50)
[2018-12-05] MEDS ORDERED: PREDNISONE10 MG PO (16:51)
--- NOTE | 2018-12-05 16:51 | MORECARE ---
CASE MANAGEMENT DISCHARGE SUMMARY PATIENT: HERMAN AGUILAR UNIT: [id number] ADM DATE: 12/03/18 AGE: 73 : 46 SEX: F ROOM/BED: D.8661 AUTHOR: MANAN CRABTREE PHYSICIAN: REFERRING PHYSICIAN: MARKO DA SILVA MD DATE OF SERVICE: 12/05/18 Discharge Plan Patient Name: HERMAN AGUILAR Facility: [facility]:[place] : 1945 Planned Disposition: Home Anticipated Discharge Date: 12/05/18 Discharge Date: Expected LOS: 2 Initial Reviewer: [email or web address] Initial Review Date: 12/02/2018 Generated: 12/05/18 5:50 pm Comments DCP- Discharge Planning Updated by [email or web address]: Verónica Hilton on 12/05/18 1:[address] Patient Name: HERMAN AGUILAR Admission Status: Elective Accout number: [id number] Admission Date: 12-03-2018 : 1945 Admission Diagnosis:SHORTNESS OF BREATH Attending: AVINASH, Current LOS: 2 Anticipated DC Date: 12-05-2018 Planned Disposition: Home Primary Insurance: MEDICARE A & B Discharge Planning Comments: DC PLAN: Return home next to daughter. DC NEEDS: Denied dc needs. CM met with patient to complete initial dc planning assessment. CM educated patient on the CM role and verbal consent given by patient to complete assessment. CM verified patient's address, phone number, and emergency contact phone numbers. Patient lives at home alone and reports she is independent with her ADL's. She lives next to her daughter who assists as needed. At discharge patient plans to return home alone and feels this is a safe discharge. CM discussed availability of home health, rehab services, and medical equipment. Patient denied known discharge needs at this time. Patient reports her daughter will transport him/her home at time of discharge. CM will continue to follow and will assist as needed with dc plans/needs. Elastic Attacher Chainstitch: Verónica Hilton RN, [facility] DCPIA - Discharge Planning Initial Assessment Updated by [email or web address]: Verónica Hilton on 12/05/18 2:38 pm * Is the patient Alert and Oriented? Yes * How many steps to enter\exit or inside your home? NONE * PCP Dr. Da Silva * Pharmacy [facility] [address] * Preadmission Environment Home Alone * ADLs Independent * Equipment Nebulizer Walker * List name and contact numbers for known caregivers / representatives who currently or will assist patient after discharge: Mayra Garcia - [facility] - [phone] Latisha Benito - [facility] - [phone] * Verbal permission to speak to the caregivers and representatives has been obtained from the patient. Yes * Community resources currently utilized None * Additional services required to return to the preadmission environment? No * Can the patient safely return to the preadmission environment? Yes * Has this patient been hospitalized within the prior 30 days at any hospital? No External Providers External Provider: [facility] Patient[facility] Next Contact Date: 12/05/2018 Service Request Date: Service Type: Resolution: Reviewer: Comments: Coverage Notice Reviewer: [id number] - Verónica Hilton Notice Issued Date-Time: 12/05/2018 13:16 Notice Type: IM Discharge Notice Notice Delivered To: Patient Relationship to Patient: Weathercaster Name: Delivery Method: HAND - Hand Delivered Ellie Days: Prior Verbal Notification: Recipient Understood Notice: Recipient Signature: Med Rec Note Co-signed by Attending: Coverage Notice Comment: Last DP export: 12/05/18 1:43 pm Patient Name: HERMAN AGUILAR Page [phone] at 1651 All edits/amendments must be made on the electronic document DICTATION DATE: 12/05/181649 COUNTERINTELLIGENCE SPECIALIST: ASHLEY 12/05/181649 RPT#: [id number] DC DATE: STATUS: ADM IN [facility] [address] [place] [address] END OF REPORT
--- NOTE | 2018-12-05 16:58 | MORECARE ---
CASE MANAGEMENT DISCHARGE SUMMARY PATIENT: HERMAN AGUILAR UNIT: [id number] ADM DATE: 12/03/18 AGE: 73 : 47 SEX: F ROOM/BED: D.2102 AUTHOR: MANAN CRABTREE PHYSICIAN: REFERRING PHYSICIAN: MARKO DA SILVA MD DATE OF SERVICE: 12/05/18 Discharge Plan Patient Name: HERMAN AGUILAR Facility: [facility]:[place] : 1945 Planned Disposition: Home Anticipated Discharge Date: 12/05/18 Discharge Date: Expected LOS: 2 Initial Reviewer: [email or web address] Initial Review Date: 12/02/2018 Generated: 12/05/18 5:58 pm Comments DCP- Discharge Planning Updated by [email or web address]: Pacheco Dominguez on 12/05/18 3:[address] Patient Name: HERMAN AGUILAR Encounter No: [id number] : 1945 Primary Insurance: MEDICARE A & B Anticipated DC Date: 12-05-2018 Planned Disposition: Home DCP follow-up note: CM RECEIVED ORDER FOR OVERNIGHT PULSE OXIMETRY TESTING. CM MET WITH PT IN DISCUSSED ORDER AND PROVIDED LISTING OF HOME HEALTH COMPANIES. PT WANTS TO USE [facility] THEY USED THEM FOR HER LATE . CHOICE SIGNED FOR [facility]. CM CALLED [facility], , SPOKE TO BOB WHO WILL ARRANGE DELIVERY OF EQUIPMENT AND INSTRUCTION ON USE TODAY. CM FAXED REFERRAL TO [facility], . Pacheco Dominguez, [address] DCP- Discharge Planning Updated by [email or web address]: Verónica Hilton on 12/05/18 1:[address] Patient Name: HERMAN AGUILAR Admission Status: Elective Accout number: [id number] Admission Date: 12-03-2018 : 1945 Admission Diagnosis:SHORTNESS OF BREATH Attending: AVINASH, Current LOS: 2 Anticipated DC Date: 12-05-2018 Planned Disposition: Home Primary Insurance: MEDICARE A & B Discharge Planning Comments: DC PLAN: Return home next to daughter. DC NEEDS: Denied dc needs. CM met with patient to complete initial dc planning assessment. CM educated patient on the CM role and verbal consent given by patient to complete assessment. CM verified patient's address, phone number, and emergency contact phone numbers. Patient lives at home alone and reports she is independent with her ADL's. She lives next to her daughter who assists as needed. At discharge patient plans to return home alone and feels this is a safe discharge. CM discussed availability of home health, rehab services, and medical equipment. Patient denied known discharge needs at this time. Patient reports her daughter will transport him/her home at time of discharge. CM will continue to follow and will assist as needed with dc plans/needs. Document Restorer: Verónica Hilton RN, [facility] DCPIA - Discharge Planning Initial Assessment Updated by [id number]: Verónica Hilton on 12/05/18 2:38 pm * Is the patient Alert and Oriented? Yes * How many steps to enter\exit or inside your home? NONE * PCP Dr. Da Silva * Pharmacy [facility] on [address] * Preadmission Environment Home Alone * ADLs Independent * Equipment Nebulizer Walker * List name and contact numbers for known caregivers / representatives who currently or will assist patient after discharge: Mayra Garcia - [facility] - [phone] Latisha Benito - [facility] - [phone] * Verbal permission to speak to the caregivers and representatives has been obtained from the patient. Yes * Community resources currently utilized None * Additional services required to return to the preadmission environment? No * Can the patient safely return to the preadmission environment? Yes * Has this patient been hospitalized within the prior 30 days at any hospital? No Coverage Notice Reviewer: [id number] - Verónica Hilton Notice Issued Date-Time: 12/05/2018 13:16 Notice Type: IM Discharge Notice Notice Delivered To: Patient Relationship to Patient: Cyber Defense Incident Responder Name: Delivery Method: HAND - Hand Delivered Ellie Days: Prior Verbal Notification: Recipient Understood Notice: Recipient Signature: Med Rec Note Co-signed by Attending: Coverage Notice Comment: Reviewer: [id number] - Pacheco Dominguez Notice Issued Date-Time: 12/05/2018 16:40 Notice Type: Patient Choice Letter Notice Delivered To: Patient Relationship to Patient: Cyber Defense Incident Responder Name: Delivery Method: HAND - Hand Delivered Ellie Days: Prior Verbal Notification: Recipient Understood Notice: Yes Recipient Signature: Yes Med Rec Note Co-signed by Attending: Coverage Notice Comment: [facility] Last DP export: 12/05/18 3:51 pm Patient Name: HERMAN AGUILAR Page [phone] at 1658 All edits/amendments must be made on the electronic document DICTATION DATE: 12/05/181657 DIRECTOR OF FOOD AND BEVERAGE SERVICES: ASHLEY 12/05/181657 RPT#: [id number] DC DATE: STATUS: ADM IN [facility] [address] [place] [address] END OF REPORT
--- NOTE | 2018-12-05 17:45 | NUR ---
DISCHARGE INSTRUCTIONS EXPLAINED IN DETAIL AND AWARE OF NEW MED AND APPOINTMENTS. SHE DID GET HER PULSE OX MACHINE DELIVERED AND HE EXPLAINED TO HER WHEN/HOW TO DO IT FOR HER TEST AT HOME. SALINE LOCK D/C WITH CATH INTACT NO BLEEDING FROM SITE. TRANSPORTED PER W/C TO PRIVATE AUTO WITH HER DAUGHTER
[2018-12-06 06:09] LABS: IGG SUBCLASS 1 479 mg/dL (248-810); IGG SUBCLASS 2 259 mg/dL (130-555); IGG SUBCLASS 3 28 mg/dL (15-102); IGG SUBCLASS 4 40 mg/dL (2-96); IGGS - IGG SERUM 879 mg/dL (700-1600)
[2018-12-08 15:09] LABS: IMMUNOGLOBULIN E 35 IU/mL (6-495)
== END 2018-12-05 17:45 | disposition home or self-care (01) | DRG 178 ==
LOC: D.M2 17:56 → OBSVTIME 12-03 00:08 → D.M2 12-03 15:33
PROVIDERS: Emergency Medicine; Internal Medicine Pulmonary Disease; ADMIT Family Medicine; ATTEND Family Medicine
DX: J69.0 Pneumonitis due to inhalation of food and vomit (principal); J45.901 Unspecified asthma with (acute) exacerbation; J44.1 Chronic obstructive pulmonary disease with (acute) exacerbation; Z68.41 Body mass index [BMI] 40.0-44.9, adult; D80.3 Selective deficiency of immunoglobulin G [IgG] subclasses; I10 Essential (primary) hypertension; I48.91 Unspecified atrial fibrillation; I25.10 Atherosclerotic heart disease of native coronary artery without angina pectoris; F41.8 Other specified anxiety disorders; M19.90 Unspecified osteoarthritis, unspecified site; K21.9 Gastro-esophageal reflux disease without esophagitis; E66.9 Obesity, unspecified; D64.9 Anemia, unspecified; T17.990A Other foreign object in respiratory tract, part unspecified in causing asphyxiation, initial encounter; K22.4 Dyskinesia of esophagus

== ENCOUNTER → 2019-01-23 09:37 | Outpatient (CLI) | payer MEDICARE, BC ==
[2018-12-03 01:18] VITALS: BMI 43.2
[~2019-01-23 09:37] MED LIST changes: +IBUPROFEN800 MG PO; +LEVAQUIN750 MG PO; +MIRAPEX0.25 MG PO; +MUCINEX DM ER1 EAC1 PO; +PREDNISONE10 MG PO; +PREDNISONE20 MG PO; +SYMBICORT 16010.2 GM INH; +TESSALON PERLE100 MG PO; +TRIAMTERENE-HC1 EAC3 PO
== END | disposition home or self-care (01) ==
LOC: D.RT 01-16 15:00
PROVIDERS: ATTEND Internal Medicine Pulmonary Disease
DX: J45.909 Unspecified asthma, uncomplicated (principal)

== ENCOUNTER 2019-03-03 07:26 | Outpatient (CLI) | payer MEDICARE, BC ==
[2018-12-03 01:18] VITALS: BMI 43.2
--- NOTE | 2019-03-03 09:16 | NUR ---
0854 MONOMETRY COMPLETED. MINIMAL NOSE BLEED. DC ISTRUCTIONS GIVEN. AMBULATED OUT TO MEET DAUGHTER IN WAITING ROOM.
== END 2019-03-03 08:54 | disposition home or self-care (01) ==
LOC: D.OPS 07:26
PROVIDERS: ATTEND Internal Medicine Gastroenterology
DX: R13.10 Dysphagia, unspecified (principal); K22.4 Dyskinesia of esophagus; K21.9 Gastro-esophageal reflux disease without esophagitis

== ENCOUNTER 2019-06-22 10:50 | Day surgery (SDC) | payer MEDICARE, BC ==
[~2019-06-22] VITALS: Ht 162.6 cm; Wt 113.6 kg
[2019-06-22 11:23] LABS: HEMATOCRIT 36.6 % (36.0-48.0); HEMOGLOBIN 12.5 g/dL (12-16); MCH 30.5 pg (26.0-34.0); MCHC 34.2 g/dL (31.0-37.0); MCV 89.3 fL (80.0-100.0); MEAN PLATELET VOLUME 8.5 fL (7.4-10.4); RBC 4.1 10x6/uL (4.00-5.40); RDW 13.3 % (11.5-14.5); WBC 8.8 10x3/uL (4.8-10.8)
[2019-06-22] MEDS ORDERED: FISH OIL 1,0001 CA1 PO (11:54)
[2019-06-22 11:55] VITALS: BP 148/61; Ht 162.6 cm; Wt 113.6 kg
--- NOTE | 2019-06-22 13:25 | NUR ---
PT DC INSTRUCTIONS REVIEWED AT THIS TIME, PT AND FAMILY VERBALIZED UNDERSTANDING. PT IV REMOVED AT THIS TIME, INTACT, NO REDNESS OR SWELLING NOTED AT SITE. PT IV DRESSED WITH GAUZE AND COBAND, NO BLEEDING NOTED AT SITE.
--- NOTE | 2019-06-22 13:45 | NUR ---
PT LEAVING OPS AT THIS TIME VIA WC, NAD NOTED.
--- NOTE | 2019-06-23 15:20 | OP ---
PATIENT NAME: HERMAN AGUILAR MEDICAL RECORD: [id number] :[birth year] LOCATION:[facility] ADMISSION DATE: SURGEON: CHAZ CHIU DO DATE OF OPERATION: 06/22/2019 PROCEDURE: EGD with biopsies. INDICATION FOR PROCEDURE: Dysphagia, GERD, esophageal dysmotility. SCOPE: Olympus video gastroscope. MEDICATIONS: Propofol 200 mg IV per anesthesia. ESTIMATED BLOOD LOSS: Minimal. COMPLICATIONS: None. FINDINGS: Informed consent was given. The patient was made comfortable with the above medication. After reaching an adequate level of sedation by slow IV push, the patient was placed on her left side. The endoscope was advanced under direct visualization through the mouth to the second portion of the duodenum. The upper, middle, and lower thirds of the esophagus appeared normal. Random cold forceps biopsies were taken from the mid esophagus. At the GE junction, there were minor changes consistent with LA class C, reflux-induced esophagitis. There were no strictures or rings within the esophagus itself. The endoscope was advanced beyond the GE junction into the stomach and retroflexed to view the cardia where a small sliding hiatal hernia was present. The mucosa of the entire stomach appeared normal. Random cold forceps biopsies were taken from the antrum to submit for histopathology and to rule out the presence of H. pylori. The endoscope was advanced beyond the pylorus into the duodenum, which appeared normal to the second portion. The endoscope was then withdrawn from the patient. The patient tolerated the procedure well and there were no complications. IMPRESSION: 1. LA class C, reflux-induced esophagitis. 2. Small sliding hiatal hernia. PLAN AND RECOMMENDATIONS: 1. Discharge home when recovery parameters are met. 2. Follow up biopsy specimen results. 3. GERD diet and reflux precautions. 4. Continue current medications including pantoprazole 40 mg daily. 5. I will arrange for a modified barium swallow with speech therapy regarding the patient's continued symptoms of oropharyngeal dysphagia and possible aspiration while eating. 6. Follow up in GI clinic in 3-4 weeks after modified barium swallow to determine if further evaluation is indicated. TRANSINT:[id number] Voice Confirmation ID: [id number] DOCUMENT ID: [id number] OPERATIVE REPORT [id number] HERMAN AGUILAR CHAZ CHIU DO at 1520 CC: [id number] DICTATION DATE: 06/22/19 1259 THINNER SPRAYER: 06/22/19 2302 [facility] [place] 06/22/19 [facility] [address] [place] [id number]
== END 2019-06-22 13:45 | disposition home or self-care (01) ==
LOC: D.OPS 10:50
PROVIDERS: Anesthesiology; ATTEND Internal Medicine Gastroenterology
DX: R13.10 Dysphagia, unspecified (principal); K44.9 Diaphragmatic hernia without obstruction or gangrene; K21.0 Gastro-esophageal reflux disease with esophagitis; Z80.0 Family history of malignant neoplasm of digestive organs; K22.8 Other specified diseases of esophagus

== ENCOUNTER → 2019-07-01 12:38 | Outpatient (CLI) | payer MEDICARE, BC ==
[2019-06-22 11:55] VITALS: BMI 43.0
[~2019-07-01 12:38] MED LIST changes: +FISH OIL 1,0001 CA1 PO
== END | disposition home or self-care (01) ==
LOC: D.RAD 12:38
PROVIDERS: ATTEND Internal Medicine Gastroenterology
DX: R13.10 Dysphagia, unspecified (principal)